=== PATIENT | female | born 1995 | race African-American/Black ===

== ENCOUNTER 2017-08-26 16:49 | Emergency (ER) | payer SELFPAY ==
[~2017-08-26] VITALS: Ht 180.3 cm; Wt 121.0 kg
[~2017-08-26 16:49] MED LIST: HYDR-3534 PO; MACR100C PO
[2017-08-26 17:19] VITALS: BP 134/77; PULSE 105; RESP 16; TEMP 98.4; O2SAT 97
[2017-08-26] MEDS ORDERED: IBUP1TAB7 PO (19:30)
[2017-08-26] MEDS ORDERED: BENZ100 PO (19:30)
--- NOTE | 2017-08-26 19:31 | PD ---
HPI Chief Complaint: Cold / Flu Symptoms Time Seen by Provider: 19:19 Travel History International Travel<30 days: No Contact w/Intl Traveler<30days: No Traveled to known affect area: No History of Present Illness HPI 22-year-old female here for cellulitis, cough, sore throat, body aches for 1 day. She denies fever or chills. She denies sick contacts. Symptom severity is mild. No aggravating or alleviating factors. PFSH Past Medical History Medical History: Denies Significant Hx Diminished Hearing: No Respiratory: Yes (asthma) Immunizations Current: Yes Seizures: Yes (NO MEDICATIONS) ?: Not LMP: 08/01/17 : 1 Social History Alcohol Use: No Tobacco Use: No Substance Use: No Allergies-Medications (Allergen,Severity, Reaction): Coded Allergies: banana (Unverified Allergy, Severe, 08/26/17) Reported Meds & Prescriptions Reported Meds & Active Scripts Active No Active Prescriptions or Reported Medications Review of Systems Except as stated in HPI: all other systems reviewed are Neg General / Constitutional: No: Fever Eyes: No: Visual changes HENT: No: Headaches Cardiovascular: No: Chest Pain or Discomfort Respiratory: No: Shortness of Breath Gastrointestinal: No: Abdominal Pain Physical Exam Narrative GENERAL: Alert well-appearing female in no acute distress. SKIN: Warm and dry. HEAD: Normocephalic. EYES: No scleral icterus. No injection or drainage. THROAT: Pharyngeal erythema without tonsillar hypertrophy or exudate. NECK: Supple, trachea midline. No JVD or lymphadenopathy. CARDIOVASCULAR: Regular rate and rhythm without murmurs, gallops, or rubs. RESPIRATORY: Breath sounds equal bilaterally. No accessory muscle use. GASTROINTESTINAL: Abdomen soft, non-tender, nondistended. MUSCULOSKELETAL: No cyanosis, or edema. BACK: Nontender without obvious deformity. No CVA tenderness. Data Data Last Documented VS Vital Signs Date Time Temp Pulse Resp B/P (MAP) Pulse Ox O2 Delivery O2 Flow Rate FiO2 08/26/17 18:23 Room Air 08/26/17 17:19 98.4 105 16 134/77 (96) 97 MDM Medical Decision Making Medical Screen Exam Complete: Yes Emergency Medical Condition: Yes Differential Diagnosis URI, influenza, bronchitis, pneumonia Narrative Course 22-year-old female here with mild URI-like symptoms. Patient's physical exam is essentially benign. Her vital signs are stable. Symptomatic treatment of viral illness was discussed with patient. Diagnosis Primary Impression: URI (upper respiratory infection) Qualified Codes: J06.9 - Acute upper respiratory infection, unspecified Referrals: [facility] Forms: Tests/Procedures, Work Release Enter return to work date: Aug 27, 2017 Additional Instructions: Stay well hydrated by drinking plenty of fluids. Rest. Follow-up with her primary doctor. Scripts Benzonatate (Tessalon Perles) 100 Mg Cap 100 MG PO TID Y for COUGH for 5 Days, CAP 0 Refills Prov: Luann Deleon 08/26/17 Ibuprofen (Ibuprofen) 800 Mg Tab 800 MG PO Q6HR Y for PAIN, #40 TAB 0 Refills Prov: Luann Deleon 08/26/17 Disposition: 01 DISCHARGE HOME Condition: Stable Luann Deleon Aug 26, 2017 19:31
== END 2017-08-26 19:38 | disposition home or self-care (01) ==
LOC: PHEFT 16:49
DX: J06.9 Acute upper respiratory infection, unspecified (principal); R05 Cough; M79.1 Myalgia; Z87.09 Personal history of other diseases of the respiratory system; Z86.69 Personal history of other diseases of the nervous system and sense organs
CPT/HCPCS: 99283

== ENCOUNTER 2017-11-08 18:50 | Emergency (ER) | payer OTHER ==
[~2017-11-08] VITALS: Ht 180.3 cm; Wt 120.0 kg
[2017-11-08 18:57] VITALS: BP 148/71; PULSE 106; RESP 20; TEMP 98.3; O2SAT 100
--- NOTE | 2017-11-08 19:34 | PD ---
HPI Chief Complaint: Skin Problem Time Seen by Provider: 19:21 Travel History International Travel<30 days: No Contact w/Intl Traveler<30days: No Traveled to known affect area: No History of Present Illness HPI 22-year-old approximately 14 week female presents to the emergency room for evaluation of itchy rash that started about 1 hour prior to arrival. Patient reports extreme itchiness all over her body. She denies any new food, medication, or environmental exposures. Denies fevers but reports associated sore throat. She has not taken anything for symptoms. No chronic medical conditions or daily medications. Her next [employer] appointment is November 21. She denies any abdominal pain, nausea, vomiting, vaginal bleeding , or cramping. PFSH Past Medical History Diminished Hearing: No Respiratory: Yes (asthma) Immunizations Current: Yes Seizures: Yes (NO MEDICATIONS) ?: : 1 Social History Alcohol Use: No Tobacco Use: No Substance Use: No Allergies-Medications (Allergen,Severity, Reaction): Coded Allergies: banana (Unverified Allergy, Severe, 11/08/17) Reported Meds & Prescriptions Reported Meds & Active Scripts Active No Active Prescriptions or Reported Medications Review of Systems Except as stated in HPI: all other systems reviewed are Neg Physical Exam Narrative GENERAL: Well-nourished, well-developed female no acute distress. Afebrile. Ambulatory. SKIN: Focused skin assessment warm/dry. Multiple skin colored, slightly excoriated maculopapular lesions to bilateral medial upper extremities, mid back , and chest. HEAD: Normocephalic. EYES: No scleral icterus. No injection or drainage. NECK: Supple, trachea midline. No JVD or lymphadenopathy. CARDIOVASCULAR: Regular rate and rhythm without murmurs, gallops, or rubs. RESPIRATORY: Breath sounds equal bilaterally. No accessory muscle use. Data Data Last Documented VS Vital Signs Date Time Temp Pulse Resp B/P (MAP) Pulse Ox O2 Delivery O2 Flow Rate FiO2 11/08/17 18:57 98.3 106 20 148/71 (96) 100 Orders Orders Hydroxyzine Pamoate (Vistaril) (11/08/17 19:30) Group A Rapid Strep Screen (11/08/17 19:26) Comprehensive Metabolic Panel (11/08/17 19:35) Complete Blood Count With Diff (11/08/17 19:35) Strep Culture (Group A) (11/08/17 19:20) Labs Laboratory Tests Test 11/08/17 19:40 White Blood Count 10.2 TH/MM3 Red Blood Count 4.66 MIL/MM3 Hemoglobin 11.3 GM/DL Hematocrit 35.3 % Mean Corpuscular Volume 75.7 FL Mean Corpuscular Hemoglobin 24.3 PG Mean Corpuscular Hemoglobin Concent 32.1 % Red Cell Distribution Width 13.9 % Platelet Count 182 TH/MM3 Mean Platelet Volume 9.9 FL Neutrophils (%) (Auto) 67.3 % Lymphocytes (%) (Auto) 26.0 % Monocytes (%) (Auto) 3.5 % Eosinophils (%) (Auto) 2.1 % Basophils (%) (Auto) 1.1 % Neutrophils # (Auto) 6.9 TH/MM3 Lymphocytes # (Auto) 2.6 TH/MM3 Monocytes # (Auto) 0.4 TH/MM3 Eosinophils # (Auto) 0.2 TH/MM3 Basophils # (Auto) 0.1 TH/MM3 CBC Comment AUTO DIFF Differential Comment AUTO DIFF CONFIRMED Platelet Estimate NORMAL Platelet Morphology Comment NORMAL Blood Urea Nitrogen 9 MG/DL Creatinine 0.79 MG/DL Random Glucose 75 MG/DL Total Protein 7.2 GM/DL Albumin 3.2 GM/DL Calcium Level 8.5 MG/DL Alkaline Phosphatase 66 U/L Aspartate Amino Transf (AST/SGOT) 34 U/L Alanine Aminotransferase (ALT/SGPT) 67 U/L Total Bilirubin 0.4 MG/DL Sodium Level 136 MEQ/L Potassium Level 3.4 MEQ/L Chloride Level 103 MEQ/L Carbon Dioxide Level 25.8 MEQ/L Anion Gap 7 MEQ/L Estimat Glomerular Filtration Rate 109 ML/MIN [facility] [place] Medical Decision Making Medical Screen Exam Complete: Yes Emergency Medical Condition: Yes Medical Record Reviewed: Yes Differential Diagnosis Cholestasis, allergic reaction, strep Narrative Course 22-year-old 14 week female presents to the emergency room for evaluation of itchy rash that started 1 hour prior to arrival. Patient denies any new environmental, medication, or food exposures. She reports associated sore throat. Physical exam reveals multiple skin colored, slightly excoriated maculopapular lesions to bilateral medial upper extremities, mid back, and chest. CBC and CMP are unremarkable. Likely atopic dermatitis. Patient given Benadryl in the ED and discharged with instructions to apply explants. Her next [employer] up ointment is in 13 days. Told to return for worsening symptoms. She understands and agrees to plan. Diagnosis Primary Impression: Atopic dermatitis Qualified Codes: L20.89 - Other atopic dermatitis Referrals: [employer] Additional Instructions: Benadryl as directed, as needed for itchiness. Vaseline to the affected areas. Follow-up with [employer] [facility]. Return for worsening symptoms. Med/Other Pt SpecificInfo: Prescription(s) given Scripts No Active Prescriptions or Reported Meds Disposition: 01 DISCHARGE HOME Condition: Stable Marisel Rand Nov 08, 2017 19:34
[2017-11-08 19:54] LABS: AUTOMATED NEUTROPHIL # 6.9 TH/MM3 (1.8-7.7); BASOPHIL # 0.1 TH/MM3 (0-0.2); BASOPHIL % 1.1 % (0.0-2.0); EOSINOPHIL # 0.2 TH/MM3 (0-0.4); EOSINOPHIL % 2.1 % (0.0-4.0); HEMATOCRIT 35.3 % (35.0-46.0); HEMOGLOBIN 11.3 GM/DL (11.6-15.3); LYMPHOCYTE # 2.6 TH/MM3 (1.0-4.8); MEAN CELL VOLUME 75.7 FL (80.0-100.0); MEAN CORPUSCULAR HEMOGLOBIN 24.3 PG (27.0-34.0); MEAN CORPUSCULAR HGB CONC 32.1 % (32.0-36.0); MEAN PLATELET VOLUME 9.9 FL (7.0-11.0); MONO % 3.5 % (0.0-8.0); MONOCYTE # 0.4 TH/MM3 (0-0.9); NEUT % 67.3 % (16.0-70.0); PLATELET COUNT 182 TH/MM3 (150-450); RED BLOOD COUNT 4.66 MIL/MM3 (4.00-5.30); RED CELL DISTRIBUTION WIDTH 13.9 % (11.6-17.2); WHITE BLOOD COUNT 10.2 TH/MM3 (4.0-11.0)
[2017-11-08 20:00] LABS: CHLORIDE 103 MEQ/L (98-107); SODIUM (NA) 136 MEQ/L (136-145)
[2017-11-08 20:03] LABS: CALCIUM 8.5 MG/DL (8.5-10.1)
[2017-11-08 20:04] LABS: ALBUMIN 3.2 GM/DL (3.4-5.0); BICARBONATE 25.8 MEQ/L (21.0-32.0); BLOOD UREA NITROGEN 9 MG/DL (7-18); GLUCOSE,RANDOM 75 MG/DL (74-106)
[2017-11-08 20:07] LABS: ALT (GPT) 67 U/L (10-53); AST (GOT) 34 U/L (15-37); CREATININE 0.79 MG/DL (0.50-1.00); GLOMERULAR FILTRATION RATE 109 ML/MIN (>89)
[2017-11-08 20:09] LABS: TOTAL BILIRUBIN ADULT 0.4 MG/DL (0.2-1.0); TOTAL PROTEIN 7.2 GM/DL (6.4-8.2)
[2017-11-08 20:10] LABS: ALKALINE PHOSPHATASE 66 U/L (45-117)
[2017-11-08] MEDS ORDERED: diphenhydrAMINE HCL 50 MG CAP PO ONE (20:45)
== END 2017-11-08 20:49 | disposition home or self-care (01) ==
LOC: PHEFT 18:50
DX: O99.712 Diseases of the skin and subcutaneous tissue complicating pregnancy, second trimester (principal); L20.89 Other atopic dermatitis; Z3A.14 14 weeks gestation of pregnancy
CPT/HCPCS: 80053; 85025; 87081; 87880; 99283; Q0163

== ENCOUNTER → 2017-11-29 | Outpatient (CLI) | payer MEDICAID | LOC: HPND 12:02 | PROVIDERS: ATTEND Obstetrics & Gynecology | DX: O99.212 Obesity complicating pregnancy, second trimester (principal); E66.09 Other obesity due to excess calories; Z68.37 Body mass index [BMI] 37.0-37.9, adult; O26.842 Uterine size-date discrepancy, second trimester | CPT/HCPCS: 76805 ==

== ENCOUNTER → 2017-12-21 | Outpatient (CLI) | payer MEDICAID | LOC: HPND 09:20 | PROVIDERS: ATTEND Obstetrics & Gynecology | DX: O28.0 Abnormal hematological finding on antenatal screening of mother (principal); O35.0XX0 Maternal care for (suspected) central nervous system malformation in fetus, not applicable or unspecified; O40.9XX0 Polyhydramnios, unspecified trimester, not applicable or unspecified | CPT/HCPCS: 76811 ==

== ENCOUNTER → 2018-01-18 | Outpatient (CLI) | payer MEDICAID | LOC: HPND 09:01 | PROVIDERS: ATTEND Obstetrics & Gynecology | DX: O35.0XX0 Maternal care for (suspected) central nervous system malformation in fetus, not applicable or unspecified (principal); O40.2XX0 Polyhydramnios, second trimester, not applicable or unspecified | CPT/HCPCS: 76816; 76825; 76827; 93325 ==

== ENCOUNTER → 2018-02-16 | Outpatient (CLI) | payer MEDICAID | LOC: HPND 09:48 | PROVIDERS: ATTEND Obstetrics & Gynecology | DX: O35.0XX0 Maternal care for (suspected) central nervous system malformation in fetus, not applicable or unspecified (principal); O40.2XX0 Polyhydramnios, second trimester, not applicable or unspecified | CPT/HCPCS: 76816 ==

== ENCOUNTER 2018-03-07 09:53 | Emergency (ER) | payer MEDICAID ==
[2018-03-07 10:37] VITALS: BP 137/77; PULSE 115; RESP 20; TEMP 97.5
--- NOTE | 2018-03-07 11:02 | PD ---
HPI Chief Complaint Abdominal pain Date Seen: Mar 07, 2018 Time Seen: 10:45 (Keyon Pedersen MD R1) Travel History International Travel<30 Days: No Contact w/Intl Traveler<30Days: No Known Affected Area: No (Keyon Pedersen MD R1) History of Present Illness HPI Patient is a 23-year-old G1 at 32/5 pending to the ED with 1 day history of abdominal pain. Patient states she was at work today (at [employer]) when she suddenly felt a knotting/pulling like pain in her lower abdomen. Pain originates in the lower central abdomen and extends up to the umbilicus. Pain is only present when she is standing. No gastric fluid, vaginal bleeding, contraction-like pain or changes in movement. She also endorses a 1 day history of nausea, vomiting as well as diarrhea. She has had a clear, mucus- like discharge as well. Has not had any nausea or vomiting during this . She is followed closely by [facility] for polyhydramnios. Otherwise he has had care through her [facility] for [facility] and reports no other complications. Has passed her glucose tolerance test. (Keyon Pedersen MD R1) History Past Medical History Medical History: Denies Significant Hx (Keyon Pedersen MD R1) Obstetric History Obstetric History G1 Complicated by polyhydramnios, no other complications (Keyon Pedersen MD R1) Past Surgical History Surgical History: No Previous Surgery (Keyon Pedersen MD R1) Family History Family History: Negative (Keyon Pedersen MD R1) Social History Narrative Social History Lives at home with her boyfriend Denies tobacco, alcohol, illicit drug use (Keyon Pedersen MD R1) Allergies-Medications (Allergen,Severity, Reaction): Coded Allergies: banana (Unverified Allergy, Severe, 11/08/17) Home Meds No Active Prescriptions or Reported Meds Review of Systems Except as stated in HPI: all other systems reviewed are Neg (Keyon Pedersen MD R1) Physical Exam Narrative GENERAL: Well-nourished, well-developed patient. SKIN: Warm and dry. HEAD: Normocephalic and atraumatic. EYES: No scleral icterus. No injection or drainage. ENT: No nasal drainage noted. Mucous membranes pink. Airway patent. NECK: Supple, trachea midline. No JVD. CARDIOVASCULAR: Regular rate and rhythm without murmurs, gallops, or rubs. RESPIRATORY: Breath sounds equal bilaterally. No accessory muscle use. ABDOMEN/GI: Abdomen soft, non-tender, bowel sounds present, no rebound, no guarding Gravid to 32 weeks size GENITOURINARY: External Genitalia: intact and normal in appearance Cervix: Posterior Dilatation: Closed Effacement: 0 Station: -3 Presentation: Undetermined Membranes: Intact Uterine Contractions: None FHT's: Category: 1 Baseline: 130 Reactive: y Variability: Moderate Decels: None EXTREMITIES: No cyanosis or edema. BACK: Nontender without obvious deformity. No CVA tenderness. NEUROLOGICAL: Awake and alert. Motor and sensory grossly within normal limits. Five out of 5 muscle strength in all muscle groups. Normal speech. (Keyon Pedersen MD R1) Data Data Orders Orders Vital Signs (Adult) .ON ADMISSION (03/07/18 10:34) ^ Labor Status (03/07/18 10:34) Heart (03/07/18 10:34) ^ Non Stress Test (03/07/18 10:34) (Keyon Pedersen MD R1) MDM Plan 23-year-old G1 at 32/5 presenting to the OB ED with abdominal pain. Also 1 day history of nausea, vomiting and diarrhea. Pain is present only when standing. Category 1 tracing, no contractions on the monitor Cervix is long thick and closed We will give one-time shot of Demerol and Phenergan Urine dipstick, UA pending (Keyon Pedersen MD R1) Diagnosis Diagnosis: Primary Impression: Abdominal pain Additional Impressions: 32 weeks gestation of UTI (urinary tract infection) during Disposition: DISCHARGE HOME Condition: Stable Scripts Cephalexin (Keflex) 500 Mg Cap 500 MG PO Q8H for Infection for 7 Days, #21 CAP 0 Refills Prov: Elgin Tan II, MD 03/07/18 Departure Forms: Work Release Enter return to work date: Mar 09, 2018 Special Instructions: return to work 03/09/18 Keyon Pedersen MD R1 Mar 07, 2018 11:02 Elgin Tan II, MD Mar 07, 2018 12:27
[2018-03-07] MEDS ORDERED: LACTATED RINGER'S 1000 ML INJ 1,000 ML IV ONE (11:15)
[2018-03-07] MEDS ORDERED: MEPERIDINE HCL 50 MG/ML VIAL IM ONE (11:30)
[2018-03-07] MEDS ORDERED: ONDANSETRON ODT 4 MG TAB PO ONE (11:30)
[2018-03-07] MEDS ORDERED: PROMETHAZINE INJ 25 MG/ML VIAL IM ONE (11:30)
[2018-03-07 12:05] LABS: BACTERIA, URINE MOD /hpf; BILIRUBIN, URINE NEG (NEG); BLOOD, URINE NEG (NEG); GLUCOSE,URINE NEG (NEG); KETONE, URINE 10 mg/dL (NEG); MUCUS URINE FEW /lpf (OCC); NITRITE,URINE NEG (NEG); SQUAMOUS EPITHELIAL CELL URINE 16 /hpf (0-5); TRANSITIONAL EPI CELLS, URINE <1 /hpf; URINE COLOR YELLOW (YELLW/STRAW); URINE LEUKOCYTE ESTERASE LARGE (NEG)
[2018-03-07] MEDS ORDERED: CEPH-460 PO (12:26)
== END 2018-03-07 12:52 | disposition home or self-care (01) ==
LOC: HOBED 09:53
DX: O26.893 Other specified pregnancy related conditions, third trimester (principal); R19.7 Diarrhea, unspecified; O23.43 Unspecified infection of urinary tract in pregnancy, third trimester; Z3A.32 32 weeks gestation of pregnancy
CPT/HCPCS: 81001; 87086; 96372; 99283; J2175; J2550; J7120

== ENCOUNTER → 2018-03-14 | Outpatient (CLI) | payer MEDICAID ==
[~2018-03-14] MED LIST changes: +CEPH-460 PO; -HYDR-3534 PO; -MACR100C PO
== END ==
LOC: HPND 13:14
PROVIDERS: ATTEND Obstetrics & Gynecology
DX: O35.0XX0 Maternal care for (suspected) central nervous system malformation in fetus, not applicable or unspecified (principal); O40.2XX0 Polyhydramnios, second trimester, not applicable or unspecified
CPT/HCPCS: 76816

== ENCOUNTER → 2018-03-21 | Outpatient (CLI) | payer MEDICAID | LOC: HPND 13:35 | PROVIDERS: ATTEND Obstetrics & Gynecology | DX: O35.0XX0 Maternal care for (suspected) central nervous system malformation in fetus, not applicable or unspecified (principal); O40.2XX0 Polyhydramnios, second trimester, not applicable or unspecified; O35.8XX0 Maternal care for other (suspected) fetal abnormality and damage, not applicable or unspecified | CPT/HCPCS: 76815 ==

== ENCOUNTER 2018-05-12 10:36 | Inpatient (IN) ==
--- NOTE | 2018-05-12 11:39 | ED ---
History of Present Illness Primary Care Physician: No Primary Care Physician History of Present Illness: Patient is a 23-year-old G 1 p 0 at 41/0 who presents today for decreased movement. She reports she went to [facility] diagnostics yesterday who instructed her to monitor her baby's movement. She states that she did kick counts during the night, reports approximate 1-2/h. She will states that she was to be induced today at 8 PM. Denies nausea, vomiting, fever, chills, abdominal pain, shortness of breath, changes in vision, headache, lightheadedness, dizziness, dysuria, hematuria, frequency, change in urine color/smell, change in bowel habits, large gushes of fluid. Notes some minor whitish discharge, normal for . No bloody discharge, abnormally colored or malodorous discharge. No other complaints today. History OB: Polyhydramnios, GBS positive Medical: Denies Surgical: Denies Family Father: Healthy Mother: Healthy Social denies EtOH, tobacco, drugs Review of Systems Constitutional: Denies chills, Denies fatigue, Denies fever(s) Eyes: Denies blind spots, Denies blurry vision, Denies change in vision, Denies double vision Ears, Nose, Mouth, and Throat: Denies abnormal hearing, Denies hearing loss, Denies nasal discharge, Denies nose pain Cardiovascular: Denies chest pain, Denies fast heart rate, Denies shortness of breath Respiratory: Denies chest congestion, Denies cough, Denies shortness of breath, Denies wheezing Gastrointestinal: Reports loose stools, Denies abdominal pain, Denies black, tarry stools, Denies bright, red blood in stools Genitourinary: Denies abnormal vaginal bleeding, Denies blood in urine, Denies painful urination, Denies vaginal discharge Musculoskeletal: Denies joint pain, Denies numbness Skin/Breast: Denies skin ulcer, Denies sores Neurologic: Denies abnormal hearing, Denies abnormal speech, Denies abnormal walking, Denies burning sensations, Denies confusion, Denies dizziness, Denies fainting, Denies frequent falls, Denies loss of vision Psychiatric: Denies anxiety, Denies confusion, Denies depression Endocrine: Denies cold intolerance, Denies fatigue Hematologic/Lymphatic: Denies easy bleeding, Denies easy bruising PMFSH - Alcohol History How Often Do You Have a Drink Containing Alcohol: Never - Substance Use History Substance History: No History of Abuse Medications and Allergies Active Medications: Active Medications Sodium Chloride (Ns Flush) 2 ml IV.FLUSH BID DENEEN Sodium Chloride (Ns Flush) 2 ml IV.FLUSH PRN PRN PRN Reason: FLUSH AFTER USING IV ACCESS Allergies Allergy/AdvReac Type Severity Reaction Status Date / Time banana Allergy Severe throat Unverified 05/12/18 10:53 closes Exam Vital signs: Vital Signs 05/12/18 10:48 05/12/18 10:49 Temperature 97.9 F Pulse Rate 119 H Respiratory Rate 20 Blood Pressure 127/72 Intake & Output 05/11/18 05/12/18 05/12/18 18:59 06:59 18:59 Weight 113.398 kg Narrative: GENERAL: Well-nourished, well-developed patient. SKIN: Warm and dry. HEAD: Normocephalic and atraumatic. EYES: No scleral icterus. No injection or drainage. ENT: No nasal drainage noted. Mucous membranes pink. Airway patent. NECK: Supple, trachea midline. No JVD. CARDIOVASCULAR: Regular rate and rhythm without murmurs, gallops, or rubs. RESPIRATORY: Breath sounds equal bilaterally. No accessory muscle use. ABDOMEN/GI: Abdomen soft, non-tender, bowel sounds present, no rebound, no guarding Gravid to 41 weeks size GENITOURINARY: External Genitalia: intact and normal in appearance Cervix: Posterior Dilatation: Fingertip Effacement: Thick Membranes: Intact Uterine Contractions: Rare FHT's: Category: 1 Baseline: 135 Reactive: Yes Variability: Moderate Decels: None EXTREMITIES: No cyanosis or edema. BACK: Nontender without obvious deformity. No CVA tenderness. NEUROLOGICAL: Awake and alert. Motor and sensory grossly within normal limits. Five out of 5 muscle strength in all muscle groups. Normal speech. Assessment and Plan - Diagnosis (1) 41 weeks gestation of Code(s): Z3A.41 - 41 weeks gestation of Status: Acute (2) Polyhydramnios Code(s): O40.9XX0 - Polyhydramnios, unspecified trimester, not applicable or unspecified Status: Acute - Plan 23-year-old at 41/0 who presents today for decreased movement. Was to be induced today. Denies any other significant history. -Category 1 reassuring -Admit to labor and delivery -Cervical ripening with Cervidil - heart rate monitoring -GBS positive, prophylaxis with penicillin Seen and discussed with Dr. Lux Discharge Plan - Discharge Disposition Patient Disposition: 30 Still Patient - Physicians Team ED Provider: Elijah Lux Primary Care Provider: Primary Care Ayah,Klaudia
[2018-05-12] MEDS ORDERED: Sod Chloride 0.9% Inj 1,000 ML IV.CONT PRN (11:54)
[2018-05-12] MEDS ORDERED: Naloxone Inj 0.4 MG/ML Vial IV.PUSH PRN (11:54)
[2018-05-12] MEDS ORDERED: Sodium Chlor 0.9% Inj 500 ML IV.SIG PRN (11:54)
[2018-05-12] MEDS ORDERED: Oxytocin 30 Units/500ml Premix 30 UNITS/500 ML BAG IV.SIG ONE (11:54)
[2018-05-12] MEDS ORDERED: fentaNYL Citrate Inj 100 MCG/2 ML Ampul IV.PUSH PRN (11:54)
[2018-05-12] MEDS ORDERED: Citric Acid/Sodium Citrate Liq 30 ML UDC PO SCH (12:00)
[2018-05-12 13:01] LABS: Baso # (Auto) 0.1 th/mm3 (0.0-0.2); Baso % (Auto) 0.8 % (0.0-2.0); Eos # (Auto) 0.2 th/mm3 (0.0-0.4); Eos % (Auto) 2.1 % (0.0-4.0); Hematocrit 35.8 % (35.0-46.0); Hemoglobin 11.5 gm/dL (11.6-15.3); Lymph # (Auto) 1.6 th/mm3 (1.0-4.8); Lymph % (Auto) 20.5 % (9.0-44.0); Mean Corpuscular Hemoglobin 23.1 pg (27.0-34.0); Mean Corpuscular Volume 72.2 fL (80.0-100.0); Mean Platelet Volume 10.2 fL (7.0-11.0); Mono # (Auto) 0.4 th/mm3 (0.0-0.9); Mono % (Auto) 5.6 % (0.0-8.0); Neut # (Auto) 5.5 th/mm3 (1.8-7.7); Platelet Count 151 th/mm3 (150-450); Red Blood Count 4.97 mil/mm3 (4.00-5.30); Red Cell Distribution Width 15.8 % (11.6-17.2); White Blood Count 7.8 th/mm3 (4.0-11.0)
[2018-05-12] MEDS ORDERED: Penicillin G Potassium Inj 5,000,000 UNIT in Sodium Chloride 0.9% Inj 100 ML IV.SIG ONE (14:00)
[2018-05-12 14:36] LABS: Bilirubin,Urine Negative (Negative); Clarity,Urine Clear (Clear); Color,Urine Yellow (Yellw/Straw); Glucose,Urine (UA) Negative (Negative); Leukocyte Esterase,Urine Negative (Negative); Mucus,Urine Few /lpf (Occasional); Nitrite,Urine Negative (Negative); Specific Gravity,Urine 1.025 (1.002-1.035); Squamous Epithelial Cell,Urine 2 /hpf (0-5); Urobilinogen,Urine 4 or Greater mg/dL (Less than 2)
[2018-05-12 14:37] LABS: Amphetamine Urine With Conf Neg (Neg); Benzodiazepine Urine With Conf Neg (Neg)
[2018-05-12] MEDS: Penicillin G Potassium Inj 2,500,000 UNIT in Sodium Chlor 0.9% Inj 100 ML IV.SIG SCH ×2 (18:31→22:20)
[2018-05-13] MEDS: fentaNYL Citrate Inj 100 MCG/2 ML Ampul IV.PUSH PRN ×3 (01:16→04:00)
[2018-05-13] MEDS: Penicillin G Potassium Inj 2,500,000 UNIT in Sodium Chlor 0.9% Inj 100 ML IV.SIG SCH ×6 (02:39→23:17)
[2018-05-13] MEDS ORDERED: fentaNYL 2MCG-Bupiv 0.125% Epi 150 ML EPIDURAL ONE (06:20)
--- NOTE | 2018-05-13 08:06 | P.OBANTE ---
Subjective Interval History: patient notes worsening contractions. Objective Vital Signs and I&O: Vital Signs 05/12/18 10:48 05/12/18 10:49 05/12/18 12:40 Temperature 97.9 F Pulse Rate 119 H 105 H Respiratory Rate 20 Blood Pressure 127/72 130/88 05/12/18 12:45 05/12/18 14:22 05/12/18 14:23 Temperature 98.1 F Pulse Rate 97 H Respiratory Rate 18 18 Blood Pressure 122/76 05/12/18 15:07 05/12/18 15:08 05/12/18 17:12 Temperature Pulse Rate 97 H 94 H Respiratory Rate 18 18 Blood Pressure 118/78 05/12/18 17:13 05/12/18 18:28 05/12/18 18:29 Temperature Pulse Rate 112 H 108 H 103 H Respiratory Rate 18 Blood Pressure 115/88 106/76 05/12/18 20:13 05/12/18 20:15 05/12/18 22:15 Temperature 97.8 F Pulse Rate 101 H Respiratory Rate 18 18 Blood Pressure 132/76 05/12/18 23:20 05/13/18 01:20 05/13/18 01:22 Temperature 97.5 F L Pulse Rate 99 H 86 Respiratory Rate 18 18 Blood Pressure 119/74 129/84 05/13/18 04:07 05/13/18 05:44 05/13/18 06:44 Temperature 97.9 F Pulse Rate 97 H Respiratory Rate 18 18 18 Blood Pressure 146/92 H 05/13/18 06:55 05/13/18 07:23 05/13/18 07:44 Temperature 98.1 F Pulse Rate 100 H 100 H 101 H Respiratory Rate 16 Blood Pressure 143/94 H 135/85 114/74 Intake & Output 05/12/18 05/13/18 05/13/18 18:59 06:59 18:59 Intake Total 2300 / 2300 Balance 2300 / 2300 Weight 113.398 kg Intake: IV 2300 / 2300 LR 1000 mL Inj 1,000 ML @ 125 2000 / 2000 mls/hr IV.CONT .Q8H DENEEN Rx#: [id number] Pfizerpen-G Inj 2,500,000 UNIT 300 / 300 In NS Inj 100 ML @ 200 mls/hr IV.SIG Q4H DENEEN Rx#:[id number] Lab and Micro Results: Laboratory Results - last 24 hr 05/12/18 05/12/18 05/12/18 12:05 12:05 12:40 WBC 7.8 RBC 4.97 Hgb 11.5 L Hct 35.8 MCV 72.2 L MCH 23.1 L MCHC 32.0 RDW 15.8 Plt Count 151 MPV 10.2 Neut % (Auto) 71.0 H Lymph % (Auto) 20.5 [place] % (Auto) 5.6 Eos % (Auto) 2.1 Baso % (Auto) 0.8 Neut # (Auto) 5.5 Lymph # (Auto) 1.6 [place] # (Auto) 0.4 Eos # (Auto) 0.2 Baso # (Auto) 0.1 WBC Differential . Differential Comment Auto diff final Urine Color Yellow Urine Clarity Clear Urine pH 6.0 Ur Specific [place] 1.025 Urine Protein 30 H Urine Glucose (UA) Negative Urine Ketones Negative Urine Occult Blood Negative Urine Nitrate Negative Urine Bilirubin Negative Urine Urobilinogen 4 or greater Ur Leukocyte Esterase Negative Urine RBC 1 Urine WBC 3 Ur Squamous Epith Cells 2 Urine Mucus Few H Micro UA Comment Culture not ind Urine Culture Comments Culture not ind Urine Opiates Screen Neg Ur Barbiturates Screen Neg Ur Amphetamine Screen Neg U Benzodiazepines Scrn Neg Urine Cocaine Screen Neg U Cannabinoids Screen Neg Blood Type Blood Type Recheck 05/12/18 12:40 WBC RBC Hgb Hct MCV MCH MCHC RDW Plt Count MPV Neut % (Auto) Lymph % (Auto) [place] % (Auto) Eos % (Auto) Baso % (Auto) Neut # (Auto) Lymph # (Auto) [place] # (Auto) Eos # (Auto) Baso # (Auto) WBC Differential Differential Comment Urine Color Urine Clarity Urine pH Ur Specific [place] Urine Protein Urine Glucose (UA) Urine Ketones Urine Occult Blood Urine Nitrate Urine Bilirubin Urine Urobilinogen Ur Leukocyte Esterase Urine RBC Urine WBC Ur Squamous Epith Cells Urine Mucus Micro UA Comment Urine Culture Comments Urine Opiates Screen Ur Barbiturates Screen Ur Amphetamine Screen U Benzodiazepines Scrn Urine Cocaine Screen U Cannabinoids Screen Blood Type B Positive Blood Type Recheck Required Physical Exam: GENERAL: Well-nourished, well-developed patient. CARDIOVASCULAR: Regular rate and rhythm without murmurs, gallops, or rubs. RESPIRATORY: Breath sounds equal bilaterally. No accessory muscle use. ABDOMEN/GI: Abdomen soft, non-tender. Fundus: [-] GENITOURINARY: External Genitalia: intact and normal in appearance Cervix: [-] Dilatation: [-] Effacement: [-] Station: [-] Presentation: [-] Membranes: [-] Uterine Contractions: [-] FHT's: Category: [-] Baseline: [-] Reactive: [-] Variability: [-] Decels: [-] EXTREMITIES: No cyanosis or edema, non-tender, without signs of DVT. Assessment and Plan - Plan Patient recently received epidural currently 2cm dilated per RN EFW is 9lbs by recent ultrasound Male Patient passed her GTT Nulliparous Weight gain was 23lbs height is 5'11" postdates I discussed the risk factors for shoulder dystocia mentioned above with the patient. i discussed the possible outcomes of shoulder dystocia including severe vaginal lacerations, brachial plexus injury, hypoxic brain injury and . At this point she understands and accepts the risk of possible shoulder dystocia. I offered elective LTCD, but she declined. At this time she would like to proceed with attempted avginal delivery. She agrees that if her labor progresses slowly, or if arrest occurs we should proceed with delivery.
[2018-05-13] MEDS ORDERED: fentaNYL Citrate Inj 100 MCG/2 ML Ampul EPIDURAL ONE (08:51)
[2018-05-13] MEDS ORDERED: fentaNYL 2MCG-Bupiv 0.125% Epi 150 ML EPIDURAL PRN (08:51)
--- NOTE | 2018-05-13 10:59 | P.OBLABOR ---
Subjective Interval history: Patient sleeping this morning. Per nursing, no problems other than was not able to sleep last night due to having contractions and pain. S/p epidural this AM for pain, no complaints since then. Objective Vital Signs: Vital Signs - 8 hr 05/13/18 04:07 05/13/18 05:44 05/13/18 06:44 Temperature 97.9 F Pulse Rate 97 H Respiratory Rate 18 Blood Pressure 146/92 H 05/13/18 06:55 05/13/18 07:23 05/13/18 07:26 Temperature Pulse Rate 100 H 100 H 94 H Respiratory Rate Blood Pressure 143/94 H 135/85 117/76 05/13/18 07:44 05/13/18 08:10 05/13/18 08:40 Temperature 98.1 F Pulse Rate 101 H 95 H 89 Respiratory Rate 16 Blood Pressure 114/74 124/85 05/13/18 09:10 05/13/18 09:32 05/13/18 10:05 Temperature Pulse Rate 88 107 H 89 Respiratory Rate Blood Pressure 124/78 101/65 103/81 Objective: Pelvic Exam: Cervix: soft Dilatation: 2 Effacement: 20 Station: -2 Presentation: midposition Membranes: intact Uterine Contractions: irregular, variable FHT's: Category: 1 Baseline: 120 Reactive: yes Variability: mod Decels: absent Medical Induction of Labor: Yes Medical Induction Start Date: 05/12/18 Medical Induction Start Time: 13:22 Assessment and Plan - Diagnosis (1) 41 weeks gestation of Code(s): Z3A.41 - 41 weeks gestation of Status: Acute (2) Polyhydramnios Code(s): O40.9XX0 - Polyhydramnios, unspecified trimester, not applicable or unspecified Status: Acute - Plan @41/1 weeks in latent phase of labor. FHT Cat 1 reassuring. S/p cervadil and cytotec for induction, s/p epidural for pain. 2. Performed balloon dilatation by Dr. Sexton. Continue labor checks q4-6 hrs or as needed. Plan to start Pit when cervix becomes more favorable. Discussed w/Dr. Sexton.
[2018-05-13] MEDS ORDERED: Lidocaine 2%/Epinephrine 1:200,000 PF Inj 20 ML Vial INFILTRATN ONE (12:00)
--- NOTE | 2018-05-13 15:27 | P.OBGPN ---
strip reviewed with nursing. FHR strip has periods of minimal variability lasting between 30-45 minutes. During these episodes there are questionable subtle decelerations. Shortly following this the FHR strip will return to moderate variability with accelerations. During vaginal exam there was positive scalp stim. Prior to labor induction BPP was 8/8 per nursing. If the FHR strip notes worsening decelerations or loses these periods of accelerations I will proceed with LTCD.
[2018-05-13] MEDS ORDERED: Morphine Sulfate PF Inj 5 MG/10 ML Ampul ONE (16:19)
[2018-05-13] MEDS ORDERED: Naloxone Inj 0.4 MG/ML Vial IV.PUSH PRN ×2 (17:00→18:28)
--- NOTE | 2018-05-13 18:06 | MP ---
cc: Valorie Sexton MD DATE OF OPERATION: 05/13/2018 PROCEDURE PERFORMED: Low transverse delivery. PREOPERATIVE DIAGNOSIS: Failure to progress. POSTOPERATIVE DIAGNOSIS: Failure to progress. FINDINGS: Normal uterus, tubes and ovaries. Viable male infant, Apgars 8 and 9, weight 8 pounds 3 ounces. ESTIMATED BLOOD LOSS: 500 mL. FLUIDS: 1300 mL. URINE OUTPUT: 100 mL. ANESTHESIA: Epidural. PROCEDURE IN DETAIL: Informed consent was verified. The patient was taken to the operating room. She was prepped and draped in normal sterile fashion after receiving a spinal dose in her epidural. A Pfannenstiel skin incision was made with a 10-blade scalpel and carried through to the underlying layer of fascia. The fascia was incised in the midline and the incision extended laterally with Gardner scissors. The superior aspect was grasped with Sirena clamps, elevated, and the rectus muscle was dissected off with Gardner scissors. The inferior aspect was grasped with Sirena clamps, elevated, and the rectus muscles dissected off with Gardner scissors. Peritoneum was grasped with 2 hemostats, transilluminated and entered sharply with Metzenbaum scissors. The incision was extended superiorly and inferiorly with Metzenbaum scissors and good visualization of the bladder. The bladder blade was inserted. A low transverse uterine incision was made with a 10-blade scalpel and the incision was extended superiorly and inferiorly with gentle traction. Bladder blade was removed. The infant's head was delivered atraumatically. Nose and mouth were suctioned. Cord clamped and cut. Infant handed to awaiting night filler. Cord blood and cord gases were not sent. The placenta was delivered spontaneously. Uterus was exteriorized and closed with #1 chromic in a running locked fashion. A second layer of #1 Vicryl was used to imbricate the uterine incision. The posterior cul-de-sac was irrigated and aspirated. The uterus was returned to the abdomen. Gutters were irrigated and aspirated. Good hemostasis was noted. The peritoneum was closed with 2-0 Vicryl in a running fashion. The fascia was closed with #1 Vicryl in a running fashion. The wound was irrigated and aspirated. Bovie cautery used to obtain hemostasis. The subcutaneous fat was reapproximated with 2-0 Vicryl and the skin was closed with 3-0 Monocryl on a Joseph needle. The patient tolerated the procedure well. Sponge, lap and needle counts were correct x 2. The patient was taken to the recovery room in stable condition. MD Rasheed Elizabeth , 05:51 PM , 05:59 PM
[2018-05-13] MEDS ORDERED: Oxytocin 30 Units/500ml Premix 30 UNITS/500 ML BAG ONE (19:08)
--- NOTE | 2018-05-13 22:47 | P.HPFP ---
History of Present Illness Primary Care Physician: No Primary Care Physician - Diagnosis (1) 41 weeks gestation of (2) Polyhydramnios Inpatient Certification: I certify that the inpatient services were ordered in accordance with Medicare regulations governing the order. This includes certification that hospital inpatient services are reasonable and necessary and in the case of services not specified as inpatient-only under 42 CFR 419.22(n), that they are appropriately provided as inpatient services in accordance to with the 2-midnight benchmark under 43 CFR 412.3(e) Estimated Total Length of Stay (Days): 2 Plans for Post Hospital Care: Home PMFSH - Alcohol History How Often Do You Have a Drink Containing Alcohol: Never - Substance Use History Substance History: No History of Abuse Medications and Allergies Active Medications: Active Medications Citric Acid/Sodium Citrate (Sodium Citrate/Citric Acid Liq) 30 ml PO [facility] Stop: 05/16/18 11:59 Diphtheria/Pertussis/Tetanus Vacc (Boostrix Vaccine Inj) 0.5 ml IM .ONCE ONE Stop: 05/14/18 16:01 Ephedrine Sulfate (Ephedrine/Ns Syringe) 10 mg IV.PUSH UNSCH PRN PRN Reason: SEE LABEL COMMENTS Stop: 05/14/18 08:51 Fentanyl Citrate (Fentanyl Inj) 50 mcg IV.PUSH Q1H PRN PRN Reason: Pain Scale 3 - 5 Fentanyl Citrate (Fentanyl Inj) 100 mcg IV.PUSH Q1H PRN PRN Reason: PAIN SCALE 6 TO 10 Last Admin: 05/13/18 04:00 Dose: 100 mcg Lactated Ringer's (Lr 1000 Ml Inj) 1,000 mls @ 125 mls/hr IV.CONT .Q8H DENEEN Last Admin: 05/13/18 13:11 Dose: 125 mls/hr Sodium Chloride (Ns Inj) 500 mls @ 1,000 mls/hr IV.SIG UNSCH PRN PRN Reason: SEE LABEL COMMENTS Sodium Chloride (Ns Inj) 1,000 mls @ 100 mls/hr IV.CONT .Q10H PRN PRN Reason: SEE LABEL COMMENTS Lactated Ringer's (Lr 1000 Ml Inj) 1,000 mls @ 3,000 mls/hr IV.SIG UNSCH PRN PRN Reason: compromise or epidural Penicillin G Potassium 2,500, (000 unit/ Sodium Chloride) 100 mls @ 200 mls/hr IV.SIG Q4H DENEEN Stop: 05/14/18 15:59 Last Admin: 05/13/18 17:58 Dose: Not Given Fentanyl/Bupivacaine/Sodium Chlor (Fentanyl 2 Mcg-Bupiv 0.125% Epi) 150 mls @ 12 mls/hr EPIDURAL PRN PRN PRN Reason: for Labor Pain Lactated Ringer's (Lr 1000 Ml Inj) 1,000 mls @ 100 mls/hr IV.CONT .Q10H DENEEN Stop: 05/14/18 19:27 Oxytocin (Pitocin 30 Units/Ns 500 Ml Premix) 30 units in 500 mls @ 100 mls/hr IV.SIG PRN PRN PRN Reason: Heavy bleeding Stop: 05/14/18 23:27 Ketorolac Tromethamine (Toradol Inj) 30 mg IM Q6H PRN PRN Reason: SEE LABEL COMMENTS Lidocaine HCl (Xylocaine 1% Inj) 0.1 ml I-DERMAL PRN PRN PRN Reason: For IV start Stop: 05/15/18 11:53 Lidocaine HCl (Xylocaine 1% Inj) 10 ml INFILTRATN PRN PRN PRN Reason: For episiotomy repair Stop: 05/14/18 11:53 Measles/Mumps/Rubella Vaccine Live (M-M-R Ii Vaccine Inj) 0.5 ml SQ .ONCE ONE Stop: 05/14/18 16:01 Mineral Oil (Muri-Lube Oil) 10 ml TOPICAL PRN PRN PRN Reason: PRN perineal massage Miscellaneous Information (Misc Information) 1 each OTHER UNSCH PRN PRN Reason: SEE LABEL COMMENTS Stop: 05/14/18 08:51 Miscellaneous Information (Misc Information) 1 each OTHER UNSCH PRN PRN Reason: SEE LABEL COMMENTS Stop: 05/14/18 08:51 Misoprostol (Cytotec) 25 mcg VAGINAL Q4HR [facility] Last Admin: 05/13/18 17:58 Dose: Not Given Naloxone HCl (Narcan Inj) 0.1 mg IV.PUSH Q2M PRN PRN Reason: for opiate reversal Naloxone HCl (Narcan Inj) 0.4 mg IV.PUSH PRN PRN PRN Reason: Resp rate < 10 Oxycodone/Acetaminophen (Percocet 5/325 Mg) 2 tab PO Q4H PRN PRN Reason: PAIN SCALE 6 TO 10 Oxycodone/Acetaminophen (Percocet 5/325 Mg) 1 tab PO Q4H PRN PRN Reason: PAIN SCALE 3 TO 5 Sodium Chloride (Ns Flush) 2 ml IV.FLUSH BID [facility] Last Admin: 05/13/18 10:37 Dose: Not Given Sodium Chloride (Ns Flush) 2 ml IV.FLUSH PRN PRN PRN Reason: FLUSH AFTER USING IV ACCESS Sodium Chloride (Ns Flush) 2 ml IV.FLUSH BID [facility] Sodium Chloride (Ns Flush) 2 ml IV.FLUSH PRN PRN PRN Reason: FLUSH AFTER USING IV ACCESS Allergies Allergy/AdvReac Type Severity Reaction Status Date / Time banana Allergy Severe throat Verified 05/12/18 13:53 closes Home Medications Medication Instructions Recorded Confirmed Type [id number] acid 1 tab PO DAILY 05/12/18 05/12/18 History [PreNata] Exam Vital signs: Vital Signs 05/12/18 23:20 05/13/18 01:20 05/13/18 01:22 Temperature 97.5 F L Pulse Rate 99 H 86 Respiratory Rate 18 18 Blood Pressure 119/74 129/84 05/13/18 04:07 05/13/18 05:44 05/13/18 06:44 Temperature 97.9 F Pulse Rate 97 H Respiratory Rate 18 18 18 Blood Pressure 146/92 H 05/13/18 06:55 05/13/18 07:23 05/13/18 07:26 Temperature Pulse Rate 100 H 100 H 94 H Respiratory Rate Blood Pressure 143/94 H 135/85 117/76 05/13/18 07:44 05/13/18 08:10 05/13/18 08:40 Temperature 98.1 F Pulse Rate 101 H 95 H 89 Respiratory Rate 16 Blood Pressure 114/74 124/85 05/13/18 09:10 05/13/18 09:32 05/13/18 10:05 Temperature Pulse Rate 88 107 H 89 Respiratory Rate Blood Pressure 124/78 101/65 103/81 05/13/18 10:30 05/13/18 11:05 05/13/18 11:31 Temperature Pulse Rate 83 89 99 H Respiratory Rate Blood Pressure 115/96 H 126/91 H 118/80 05/13/18 12:01 05/13/18 12:10 05/13/18 12:25 Temperature Pulse Rate 101 H 94 H 97 H Respiratory Rate Blood Pressure 117/78 05/13/18 12:26 05/13/18 12:40 05/13/18 13:10 Temperature 97.5 F L Pulse Rate 103 H 95 H Respiratory Rate 16 Blood Pressure 129/78 99/63 L 05/13/18 13:31 05/13/18 13:40 05/13/18 14:35 Temperature Pulse Rate 93 H 100 H 96 H Respiratory Rate Blood Pressure 100/61 113/82 05/13/18 14:40 05/13/18 14:45 05/13/18 15:40 Temperature Pulse Rate 103 H 94 H 96 H Respiratory Rate 16 Blood Pressure 134/83 127/75 05/13/18 17:40 05/13/18 18:01 05/13/18 18:22 Temperature 98.0 F Pulse Rate 107 H 109 H 107 H Respiratory Rate 18 18 18 Blood Pressure 125/76 121/78 126/81 05/13/18 18:41 05/13/18 19:00 05/13/18 19:12 Temperature 97.6 F Pulse Rate 107 H 95 H Respiratory Rate 18 16 Blood Pressure 119/75 137/80 05/13/18 19:15 05/13/18 20:30 05/13/18 22:00 Temperature 99.2 F 98.9 F Pulse Rate 102 H 103 H Respiratory Rate 15 18 Blood Pressure 121/82 138/74 Intake & Output 05/13/18 05/13/18 05/14/18 06:59 18:59 06:59 Intake Total 2300 / 2300 1200 / 1200 Balance 2300 / 2300 1200 / 1200 Intake: IV 2300 / 2300 1200 / 1200 LR 1000 mL Inj 1,000 ML @ 125 2000 / 2000 1000 / 1000 mls/hr IV.CONT .Q8H DENEEN Rx#: [id number] Pfizerpen-G Inj 2,500,000 UNIT 300 / 300 200 / 200 In NS Inj 100 ML @ 200 mls/hr IV.SIG Q4H DENEEN Rx#:[id number] Results - Labs Result diagrams: 05/12/18 12:40 Caprini VTE Risk Assessment Caprini Risk Assessment Model: Point Value = 1 Point Value = 2 Point Value = 3 Point Value = 5 Age 41-60 Minor surgery BMI > 25 kg/m2 Swollen legs Varicose veins or History of unexplained or recurrent spontaneous Oral contraceptives or hormone replacement Sepsis (< 1 month) Serious lung disease, including pneumonia (< 1 month) Abnormal pulmonary function Acute myocardial infarction Congestive heart failure (< 1 month) History of inflammatory bowel disease Medical patient at bed rest Age 61-74 Arthroscopic surgery Major open surgery (> 45 min) Laparoscopic surgery (> 45 min) Malignancy Confined to bed (> 72 hours) Immobilizing plaster cast Central venous access Age >= 75 History of VTE Family history of VTE Factor V Leiden Prothrombin [id number] Lupus anticoagulant Anticardiolipin antibodies Elevated serum homocysteine Heparin-induced thrombocytopenia Other congenital or acquired thrombophilia Stroke (< 1 month) Elective arthroplasty Hip, pelvis, or leg fracture Acute spinal cord injury (< 1 month) Prophylaxis Regimen: Total Risk Factor Score Risk Level Prophylaxis Regimen 0-1 Low Early ambulation 2 Moderate Order ONE of the following: *Sequential Compression Device (SCD) *Heparin 5000 units SQ BID 3-4 Higher Order ONE of the following medications: *Heparin 5000 units SQ TID *Enoxaparin/Lovenox 40 mg SQ daily (WT < 150 kg, CrCl > 30 mL/min) *Enoxaparin/Lovenox 30 mg SQ daily (WT < 150 kg, CrCl > 10-29 mL/min) *Enoxaparin/Lovenox 30 mg SQ BID (WT < 150 kg, CrCl > 30 mL/min) AND/OR *Sequential Compression Device (SCD) 5 or more Highest Order ONE of the following medications: *Heparin 5000 units SQ TID (Preferred with Epidurals) *Enoxaparin/Lovenox 40 mg SQ daily (WT < 150 kg, CrCl > 30 mL/min) *Enoxaparin/Lovenox 30 mg SQ daily (WT < 150 kg, CrCl > 10-29 mL/min) *Enoxaparin/Lovenox 30 mg SQ BID (WT < 150 kg, CrCl > 30 mL/min) AND *Sequential Compression Device (SCD) Assessment and Plan - Assessment (1) 41 weeks gestation of Code(s): Z3A.41 - 41 weeks gestation of Status: Acute (2) Polyhydramnios Code(s): O40.9XX0 - Polyhydramnios, unspecified trimester, not applicable or unspecified Status: Acute
[2018-05-13] MEDS ORDERED: Oxytocin 30 Units/500ml Premix 30 UNITS/500 ML BAG IV.SIG PRN (23:28)
[2018-05-14] MEDS: Penicillin G Potassium Inj 2,500,000 UNIT in Sodium Chlor 0.9% Inj 100 ML IV.SIG SCH ×2 (06:25→19:14)
[2018-05-14] MEDS: Ibuprofen 600 MG Tablet PO PRN ×3 (08:22→21:26)
--- NOTE | 2018-05-14 09:28 | P.PNOB ---
Subjective Post op day: 1 Interval history: Postoperative day number 1. AFVSS overnight. Pain 8/10, has not had pain medication yet this morning. Incision not draining. Decreased lochia. Denies dysuria. She is feeding the baby via breast. Appetite good. No nausea or vomiting. +flatus.No bowel movement. Ambulating well. Denies calf pain, shortness of breath, or cough. Otherwise, she is doing well this morning and has no other complaints. Objective Vital Signs/I&O: Vital Signs 05/13/18 09:32 05/13/18 10:05 05/13/18 10:30 Temperature Pulse Rate 107 H 89 83 Respiratory Rate Blood Pressure 101/65 103/81 115/96 H 05/13/18 11:05 05/13/18 11:31 05/13/18 12:01 Temperature Pulse Rate 89 99 H 101 H Respiratory Rate Blood Pressure 126/91 H 118/80 117/78 05/13/18 12:10 05/13/18 12:25 05/13/18 12:26 Temperature 97.5 F L Pulse Rate 94 H 97 H Respiratory Rate 16 Blood Pressure 05/13/18 12:40 05/13/18 13:10 05/13/18 13:31 Temperature Pulse Rate 103 H 95 H 93 H Respiratory Rate Blood Pressure 129/78 99/63 L 100/61 05/13/18 13:40 05/13/18 14:35 05/13/18 14:40 Temperature Pulse Rate 100 H 96 H 103 H Respiratory Rate 16 Blood Pressure 113/82 05/13/18 14:45 05/13/18 15:40 05/13/18 17:40 Temperature 98.0 F Pulse Rate 94 H 96 H 107 H Respiratory Rate 18 Blood Pressure 134/83 127/75 125/76 05/13/18 18:01 05/13/18 18:22 05/13/18 18:41 Temperature Pulse Rate 109 H 107 H 107 H Respiratory Rate 18 18 18 Blood Pressure 121/78 126/81 119/75 05/13/18 19:00 05/13/18 19:12 05/13/18 19:15 Temperature 97.6 F Pulse Rate 95 H 102 H Respiratory Rate 16 15 Blood Pressure 137/80 121/82 05/13/18 20:30 05/13/18 22:00 05/14/18 00:00 Temperature 99.2 F 98.9 F 98.9 F Pulse Rate 103 H 108 H Respiratory Rate 18 18 Blood Pressure 138/74 142/76 H 05/14/18 04:00 05/14/18 08:10 Temperature 98.7 F 98.3 F Pulse Rate 86 101 H Respiratory Rate 18 20 Blood Pressure 145/75 H 119/70 Intake & Output 05/13/18 05/14/18 05/14/18 18:59 06:59 18:59 Intake Total 1200 / 1200 100 / 100 Output Total 450 / 450 Balance 1200 / 1200 -350 / -350 Intake: IV 1200 / 1200 100 / 100 LR 1000 mL Inj 1,000 ML @ 125 1000 / 1000 mls/hr IV.CONT .Q8H DENEEN Rx#: [id number] Ofirmev Inj 1,000 mg In 100 ml 100 / 100 @ 400 mls/hr IV.SIG Q8H DENEEN Rx# :[id number] Pfizerpen-G Inj 2,500,000 UNIT 200 / 200 In NS Inj 100 ML @ 200 mls/hr IV.SIG Q4H DENEEN Rx#:[id number] Output: Urine Amount (Catheter) 450 / 450 Indwelling Urethral Catheter 450 / 450 Result Diagrams: 05/12/18 12:40 Objective Remarks: GENERAL: Well-nourished, well-developed patient. CARDIOVASCULAR: Regular rate and rhythm without murmurs, gallops, or rubs. RESPIRATORY: Breath sounds equal bilaterally. No accessory muscle use. ABDOMEN/GI: Abdomen soft, non-tender, bowel sounds present. Incision: Clean, dry and intact. Fundus: Firm, non-tender at umbilicus. GENITOURINARY: Light to moderate bleeding. EXTREMITIES: No cyanosis or edema, non-tender, without signs of DVT. Medications and IVs: Active Medications Diphenhydramine HCl (Benadryl Inj) 25 mg IV.PUSH Q6H PRN PRN Reason: MILD TO MODERATE ITCHING Stop: 05/14/18 16:59 Last Admin: 05/13/18 23:20 Dose: 25 mg Diphenhydramine HCl (Benadryl) 50 mg PO Q6H PRN PRN Reason: MILD TO MODERATE ITCHING Stop: 05/14/18 16:59 Diphtheria/Pertussis/Tetanus Vacc (Boostrix Vaccine Inj) 0.5 ml IM .ONCE ONE Stop: 05/14/18 16:01 Penicillin G Potassium 2,500, (000 unit/ Sodium Chloride) 100 mls @ 200 mls/hr IV.SIG Q4H [facility] Stop: 05/14/18 15:59 Last Admin: 05/14/18 06:25 Dose: Not Given Lactated Ringer's (Lr 1000 Ml Inj) 1,000 mls @ 100 mls/hr IV.CONT .Q10H [facility] Stop: 05/14/18 19:27 Last Admin: 05/14/18 01:15 Dose: 100 mls/hr Oxytocin (Pitocin 30 Units/Ns 500 Ml Premix) 30 units in 500 mls @ 100 mls/hr IV.SIG PRN PRN PRN Reason: Heavy bleeding Stop: 05/14/18 23:27 Last Admin: 05/13/18 22:32 Dose: 100 mls/hr Ibuprofen (Motrin) 600 mg PO Q8H PRN PRN Reason: Acute Pain 1-5 Last Admin: 05/14/18 08:22 Dose: 600 mg Measles/Mumps/Rubella Vaccine Live (M-M-R Ii Vaccine Inj) 0.5 ml SQ .ONCE ONE Stop: 05/14/18 16:01 Miscellaneous Information (Misc Nursing Information) 1 each OTHER UNSCH PRN PRN Reason: SEE LABEL COMMENTS Stop: 05/14/18 16:59 Miscellaneous Information (Misc Nursing Information) 1 each OTHER UNSCH PRN PRN Reason: SEE LABEL COMMENTS Stop: 05/14/18 16:59 Misoprostol (Cytotec) 25 mcg VAGINAL Q4HR [facility] Last Admin: 05/14/18 06:24 Dose: Not Given Naloxone HCl (Narcan Inj) 0.4 mg IV.PUSH UNSCH PRN PRN Reason: SEE LABEL COMMENTS Stop: 05/14/18 16:59 Oxycodone/Acetaminophen (Percocet 5/325 Mg) 2 tab PO Q4H PRN PRN Reason: PAIN SCALE 6 TO 10 Last Admin: 05/14/18 08:22 Dose: 2 tab Oxycodone/Acetaminophen (Percocet 5/325 Mg) 1 tab PO Q4H PRN PRN Reason: PAIN SCALE 3 TO 5 Sodium Chloride (Ns Flush) 2 ml IV.FLUSH BID [facility] Last Admin: 08/19/18 08:17 Dose: Not Given Sodium Chloride (Ns Flush) 2 ml IV.FLUSH PRN PRN PRN Reason: FLUSH AFTER USING IV ACCESS Assessment and Plan - Diagnosis (1) delivery delivered Code(s): O82 - Encounter for delivery without indication Status: Acute - Plan 23 y/o female who is POD# 1 s/p CXN. -Continue routine care. -Percocet and Motrin PRN pain. -Encouraged OOB. Advised pelvic rest for 6 wks. Will need a f/u appt. in 1 wk for incision check. -D/c in 1-2 more days. wdw OB attending Dr. Lux
[2018-05-14] MEDS ORDERED: Measles/Mumps/Rubella Vaccine Inj 0.5 ML Vial SQ ONE (16:00)
[2018-05-14] MEDS ORDERED: Diphtheria/Tetanus/Pertussis Vaccine Inj 0.5 ML Syringe IM ONE (16:00)
[2018-05-15] MEDS: Ibuprofen 600 MG Tablet PO PRN ×3 (06:19→22:23)
--- NOTE | 2018-05-15 09:44 | P.PNOB ---
Subjective Post op day: 2 Interval history: Patient is a 23-year-old G 1 p 1 delivered at 41 weeks and 1 day. Patient is post operative day 2 after induction with non-reassuring heart tracing. Patient had no acute events overnight but does report a pulling sensation in her chest during breathing. She reports the pain to be constant, dull, over the general area of her front right chest, is nonradiating, and related only to deep inspiration. It is not related to activity or position. She denies any shortness of breath, calf pain or new lower extremity swelling. Patient's pain is well-controlled. Patient reports eating and drinking without nausea or vomiting. She reports minimal vaginal bleeding and is ambulating well. Patient is urinating and having normal BMs without any pain or difficulty. Patient denies any nausea, vomiting, fever, or chills. Objective Vital Signs/I&O: Vital Signs 05/14/18 21:26 05/15/18 08:00 Temperature 98.1 F 97.8 F Pulse Rate 115 H 105 H Respiratory Rate 20 18 Blood Pressure 123/75 113/61 Result Diagrams: 05/12/18 12:40 Objective Remarks: GENERAL: Well-nourished, well-developed patient. CARDIOVASCULAR: Regular rate and rhythm without murmurs, gallops, or rubs. RESPIRATORY: Breath sounds equal bilaterally. No accessory muscle use. ABDOMEN/GI: Abdomen soft, non-tender, bowel sounds present. Incision: Clean, dry and intact. Fundus: Firm, non-tender at umbilicus. GENITOURINARY: Light to moderate bleeding. EXTREMITIES: No cyanosis or edema, non-tender, without signs of DVT. Medications and IVs: Active Medications Ibuprofen (Motrin) 600 mg PO Q8H PRN PRN Reason: Acute Pain 1-5 Last Admin: 05/15/18 06:19 Dose: 600 mg Misoprostol (Cytotec) 25 mcg VAGINAL Q4HR DENEEN Last Admin: 05/15/18 07:51 Dose: Not Given Oxycodone/Acetaminophen (Percocet 5/325 Mg) 2 tab PO Q4H PRN PRN Reason: PAIN SCALE 6 TO 10 Last Admin: 05/15/18 06:19 Dose: 2 tab Oxycodone/Acetaminophen (Percocet 5/325 Mg) 1 tab PO Q4H PRN PRN Reason: PAIN SCALE 3 TO 5 Sodium Chloride (Ns Flush) 2 ml IV.FLUSH BID DENEEN Last Admin: 05/15/18 02:15 Dose: Not Given Sodium Chloride (Ns Flush) 2 ml IV.FLUSH PRN PRN PRN Reason: FLUSH AFTER USING IV ACCESS Assessment and Plan - Diagnosis (1) delivery delivered Code(s): O82 - Encounter for delivery without indication Status: Acute - Plan Patient is a 23-year-old G 1 p 1 delivered at 41 weeks and 1 day. Patient is post operative day 2 after induction with non-reassuring heart tracing. Patient declined Depo-Provera injection. She reports she will follow-up with outpatient provider for contraception. -Continue routine care -Monitor incision for signs of infection -Motrin and Percocet when necessary for pain -Encourage ambulation -Pelvic rest for 6 weeks will need follow-up appointment at that time. -Contraception: -Anticipate discharge tomorrow Chest discomfort/pulling: Patient's sensation of pulling in her chest does not appear to be cardiovascular or pleuritic in nature. Patient denies any shortness of breath, any calf pain, any new lower extremity swelling, the discomfort is dull and not sharp/or pleuritic in nature, and is not centered over the heart and is in a wide distribution. Physical patient had good aeration bilaterally with no apparent discomfort or pain during deep inspiration. Unlikely to be PE or cardiogenic in nature. -Monitor vitals -If shortness of breath began or new extremity swelling contact MD Discussed with OB attending Dr. Tan
[2018-05-16] MEDS: Ibuprofen 600 MG Tablet PO PRN ×2 (04:52→11:18)
--- NOTE | 2018-05-16 09:03 | P.PNOB ---
Subjective Interval history: Patient is a 23-year-old G 1 p 1 delivered at 41 weeks and 1 day. Patient is post operative day 2 after induction with non-reassuring heart tracing. Patient had no acute events overnight. Chest "pulling" from yesterday has resolved. She denies any shortness of breath, calf pain or new lower extremity swelling. Patient's pain is well-controlled. Patient reports eating and drinking without nausea or vomiting. She reports minimal vaginal bleeding and is ambulating well. Patient is urinating and having normal BMs without any pain or difficulty. Patient denies any nausea, vomiting, fever, or chills. Objective Vital Signs/I&O: Vital Signs 05/15/18 20:00 05/16/18 08:00 Temperature 98.5 F Pulse Rate 103 H 92 H Respiratory Rate 18 18 Blood Pressure 137/89 133/90 Result Diagrams: 05/12/18 12:40 Objective Remarks: GENERAL: Well-nourished, well-developed patient. CARDIOVASCULAR: Regular rate and rhythm without murmurs, gallops, or rubs. RESPIRATORY: Breath sounds equal bilaterally. No accessory muscle use. ABDOMEN/GI: Abdomen soft, non-tender, bowel sounds present. Incision: Clean, dry and intact. Fundus: Firm, non-tender at umbilicus. GENITOURINARY: Light to moderate bleeding. EXTREMITIES: No cyanosis or edema, non-tender, without signs of DVT. Medications and IVs: Active Medications Ibuprofen (Motrin) 600 mg PO Q6H PRN PRN Reason: ABDOMINAL CRAMPING Last Admin: 05/16/18 04:52 Dose: 600 mg Oxycodone/Acetaminophen (Percocet 5/325 Mg) 2 tab PO Q4H PRN PRN Reason: PAIN SCALE 6 TO 10 Last Admin: 05/16/18 04:53 Dose: 2 tab Oxycodone/Acetaminophen (Percocet 5/325 Mg) 1 tab PO Q4H PRN PRN Reason: PAIN SCALE 3 TO 5 Sodium Chloride (Ns Flush) 2 ml IV.FLUSH BID [facility] Last Admin: 05/15/18 22:20 Dose: Not Given Sodium Chloride (Ns Flush) 2 ml IV.FLUSH PRN PRN PRN Reason: FLUSH AFTER USING IV ACCESS Assessment and Plan - Diagnosis (1) delivery delivered Code(s): O82 - Encounter for delivery without indication Status: Acute - Plan Patient is a 23-year-old G 1 p 1 delivered at 41 weeks and 1 day. Patient is post operative day 3 after induction with non-reassuring heart tracing. Patient declined Depo-Provera injection. She reports she will follow-up with outpatient provider for contraception. -Continue routine care -Monitor incision for signs of infection -Motrin and Percocet when necessary for pain -Encourage ambulation -Pelvic rest for 6 weeks will need follow-up appointment at that time. -Contraception: -Anticipate discharge tomorrow Discussed with OB attending Dr. Tan
[2018-05-16 11:48] LABS: Hematocrit 32.1 % (35.0-46.0); Hemoglobin 10.2 gm/dL (11.6-15.3)
== END 2018-05-16 15:15 | disposition home or self-care (01) ==
LOC: HOBED 10:36 → H2E 11:45 → H1EA 05-13 20:24
PROVIDERS: ADMIT Obstetrics & Gynecology; ATTEND Obstetrics & Gynecology